=== PATIENT | female | born 1965 | race Hispanic/Latino ===

== ENCOUNTER → 2017-07-21 | Outpatient (CLI) | payer MEDICAID | END | disposition home or self-care (01) | LOC: RAH 09:28 | PROVIDERS: ATTEND Family Medicine | DX: Z12.31 Encounter for screening mammogram for malignant neoplasm of breast (principal) | CPT/HCPCS: 77067 ==

== ENCOUNTER 2017-10-16 20:55 | Emergency (ER) | payer MEDICAID, OTHER ==
[2017-10-16 23:13] LABS: BASOPHILS % (AUTO) 0.6 % (0.0-5.0); EOSINOPHILS % (AUTO) 2.1 % (0.0-8.0); HEMATOCRIT 37.3 % (36-48); LYMPHOCYTES % (AUTO) 30.7 % (21.0-51.0); MEAN CORPUSCULAR HEMOGLOBIN 30.4 pg (27.0-33.0); MEAN CORPUSCULAR HGB CONC 35.6 g/dL (32.0-36.0); MEAN CORPUSCULAR VOLUME 85.4 fL (79-99); MONOCYTES % (AUTO) 9.3 % (3.0-13.0); NEUTROPHILS % (AUTO) 57.3 % (40.0-77.0); NUCLEATED RED BLOOD CELLS 0.2 % (0.0-0.19); PLATELET COUNT (AUTO) 266 K/uL (130-400); RED BLOOD CELL COUNT(AUTO) 4.37 MIL/uL (4.00-5.50); RED CELL DISTRIBUTION WIDTH 13.2 % (11.0-15.5)
[2017-10-16 23:29] LABS: CREATININE 0.7 mg/dL (0.5-1.5)
[2017-10-16 23:34] LABS: POTASSIUM 2.8 mmol/L (3.5-5.1)
[2017-10-16] MEDS ORDERED: POTASSIUM BICARB/CIT AC 25 MEQ TABLET.EFF ONE (23:36)
== END 2017-10-17 00:20 | disposition home or self-care (01) ==
LOC: EDH 20:55
DX: T78.49XA Other allergy, initial encounter (principal); E87.6 Hypokalemia; I10 Essential (primary) hypertension; Z90.710 Acquired absence of both cervix and uterus; X58.XXXA Exposure to other specified factors, initial encounter
CPT/HCPCS: 36415; 80048; 82550; 85025

== ENCOUNTER → 2017-11-30 | Outpatient (CLI) | payer MEDICAID | END | disposition home or self-care (01) | LOC: RAH 11:08 | PROVIDERS: ATTEND Family Medicine | DX: M17.0 Bilateral primary osteoarthritis of knee (principal); M79.642 Pain in left hand | CPT/HCPCS: 73130; 73562 ==

== ENCOUNTER → 2018-08-08 | Outpatient (CLI) | payer MEDICAID ==
[~2018-08-08] MED LIST: IOHEXOL 350 MG/ML 100ML INFUS..BTL IV ONE
== END | disposition home or self-care (01) ==
LOC: OIH 09:55
PROVIDERS: ATTEND Family Medicine
DX: E27.9 Disorder of adrenal gland, unspecified (principal); K57.90 Diverticulosis of intestine, part unspecified, without perforation or abscess without bleeding; D35.00 Benign neoplasm of unspecified adrenal gland; N32.89 Other specified disorders of bladder; M47.815 Spondylosis without myelopathy or radiculopathy, thoracolumbar region; K76.0 Fatty (change of) liver, not elsewhere classified
CPT/HCPCS: 74178; Q9967

== ENCOUNTER 2018-09-06 18:14 | Emergency (ER) | payer MEDICAID ==
[2018-09-06] MEDS ORDERED: ACETAMINOPHEN EXTRA STRENGTH 500 MG TABLET ONE (18:53)
[2018-09-06] MEDS ORDERED: DIAZEPAM 5 MG TABLET ONE (18:54)
[2018-09-06 19:14] LABS: APPEARANCE,URINE Clear (CLEAR); BILIRUBIN,URINE Negative (NEGATIVE); COLOR,URINE Yellow (YELLOW); GLUCOSE, URINE (UA) Negative (NEGATIVE); KETONES,URINE Negative (NEGATIVE); LEUKOCYTE ESTERASE ,URINE Negative (NEGATIVE); NITRATE,URINE Negative (NEGATIVE); OCCULT BLOOD,URINE Negative (NEGATIVE); PROTEIN,URINE Negative (NEGATIVE); UROBILINOGEN,URINE 0.2 mg/dL (0.2-1.0)
[2018-09-06 19:22] LABS: CREATININE 0.8 mg/dL (0.5-1.5); POTASSIUM 3.2 mmol/L (3.5-5.1)
[2018-09-06 19:29] LABS: ALBUMIN 3.9 g/dL (3.5-5.0); BILIRUBIN,TOTAL 0.7 mg/dL (0.2-1.0); TOTAL PROTEIN, SERUM 7.5 g/dL (6.0-8.3)
[2018-09-06] MEDS ORDERED: POTASSIUM CHLORIDE 20 MEQ ERTAB PO ONE (19:57)
[2018-09-06 20:01] LABS: BASOPHILS % (AUTO) 0.5 % (0.0-5.0); EOSINOPHILS % (AUTO) 1.4 % (0.0-8.0); HEMATOCRIT 40.7 % (36-48); LYMPHOCYTES % (AUTO) 29.3 % (21.0-51.0); MEAN CORPUSCULAR HEMOGLOBIN 29.1 pg (27.0-33.0); MEAN CORPUSCULAR HGB CONC 34.1 g/dL (32.0-36.0); MEAN CORPUSCULAR VOLUME 85.5 fL (79-99); MONOCYTES % (AUTO) 7.6 % (3.0-13.0); NEUTROPHILS % (AUTO) 61.2 % (40.0-77.0); PLATELET COUNT (AUTO) 275 K/uL (130-400); RED BLOOD CELL COUNT(AUTO) 4.76 MIL/uL (4.00-5.50); RED CELL DISTRIBUTION WIDTH 12.9 % (11.0-15.5); WHITE BLOOD COUNT (AUTO) 8.9 K/uL (4.8-10.8)
[2018-09-06] MEDS ORDERED: DEXAMETHASONE SOD PHOSPHATE 10MG/ML 1ML VIAL ONE (20:25)
== END 2018-09-06 21:41 | disposition home or self-care (01) ==
LOC: EDH 18:14
DX: M62.838 Other muscle spasm (principal); M54.2 Cervicalgia; I10 Essential (primary) hypertension; Z88.8 Allergy status to other drugs, medicaments and biological substances
CPT/HCPCS: 36415; 80053; 81003; 85025; 96372; 99284; J1100

== ENCOUNTER 2019-05-15 17:21 | Observation (INO) | payer MEDICAID ==
[~2019-05-15] VITALS: Ht 157.5 cm; Wt 92.6 kg
[2019-05-15 17:38] LABS: APPEARANCE,URINE Clear (CLEAR); BILIRUBIN,URINE Negative (NEGATIVE); COLOR,URINE Yellow (YELLOW); GLUCOSE, URINE (UA) Negative (NEGATIVE); KETONES,URINE Negative (NEGATIVE); LEUKOCYTE ESTERASE ,URINE Negative (NEGATIVE); NITRATE,URINE Negative (NEGATIVE); OCCULT BLOOD,URINE Negative (NEGATIVE); PROTEIN,URINE Negative (NEGATIVE); UROBILINOGEN,URINE 0.2 mg/dL (0.2-1.0)
[2019-05-15 18:21] LABS: HEMATOCRIT 42.5 % (36-48); MEAN CORPUSCULAR HEMOGLOBIN 29.7 pg (27.0-33.0); MEAN CORPUSCULAR HGB CONC 34.4 g/dL (32.0-36.0); MEAN CORPUSCULAR VOLUME 86.4 fL (79-99); NEUTROPHILS % (AUTO) 59.6 % (40.0-77.0); PLATELET COUNT (AUTO) 227 K/uL (130-400); RED BLOOD CELL COUNT(AUTO) 4.92 MIL/uL (4.00-5.50); RED CELL DISTRIBUTION WIDTH 12.9 % (11.0-15.5)
[2019-05-15 18:22] LABS: BASOPHILS % (AUTO) 0.6 % (0.0-5.0); EOSINOPHILS % (AUTO) 1.3 % (0.0-8.0); LYMPHOCYTES % (AUTO) 31.1 % (21.0-51.0); MONOCYTES % (AUTO) 7.4 % (3.0-13.0); NUCLEATED RED BLOOD CELLS 0.1 % (0.0-0.19)
[2019-05-15 18:39] LABS: INR 0.98 (0.85-1.15); PARTIAL THROMBOPLASTIN TIME 28.7 SEC (26.3-35.5); PROTHROMBIN TIME 10.1 SEC (9.6-11.6)
[2019-05-15 18:41] LABS: ALBUMIN 3.7 g/dL (3.5-5.0); BILIRUBIN,TOTAL 0.7 mg/dL (0.2-1.0); CREATININE 0.6 mg/dL (0.5-1.5); TOTAL PROTEIN, SERUM 7.2 g/dL (6.0-8.3)
[2019-05-15 18:44] LABS: POTASSIUM 2.8 mmol/L (3.5-5.1)
[2019-05-15] MEDS ORDERED: ASPIRIN 325 MG TABLET ONE (19:23)
[2019-05-15] MEDS ORDERED: NITROGLYCERIN 1GM/1 INCH PACKET TD ONE (19:24)
[2019-05-15] MEDS ORDERED: POTASSIUM CHLORIDE 20 MEQ ERTAB PO ONE (19:24)
[2019-05-15 20:44] VITALS: BP 134/72
[2019-05-15] MEDS ORDERED: LIDOCAINE HCL-MPF 1% 2ML VIAL IJ PRN (20:45)
[2019-05-15] MEDS ORDERED: POTASSIUM CHLORIDE 10% ELIXIR 20 MEQ/15 ML UDCUP PO PRN ×2 (20:45→21:45)
[2019-05-15] MEDS ORDERED: ONDANSETRON HCL 4 MG/2 ML VIAL IVP PRN (20:45)
[2019-05-15] MEDS ORDERED: POTASSIUM CHLORIDE 20MEQ/100ML 100 ML IV PRN ×2 (20:45→21:45)
[2019-05-15] MEDS ORDERED: POTASSIUM CHLORIDE 20 MEQ ERTAB PO PRN (20:45)
[2019-05-15] MEDS ORDERED: NITROGLYCERIN 0.4 MG SL TAB SL PRN (20:45)
[2019-05-15] MEDS ORDERED: ACETAMINOPHEN 325 MG TAB PO PRN (20:45)
[2019-05-15] MEDS ORDERED: MAGNESIUM SULFATE 1 GM in SODIUM CHLORIDE 0.9% 50 ML IV PRN (21:00)
--- NOTE | 2019-05-15 21:00 | NUR ---
ADMISSION NOTE ADMIT TO ROOM 409 VIA W/C FROM ER. PATIENT AWAKE, ALERT OX3, NO SOB, NO C/O PAIN AT THIS TIME, FAMILY AT BEDSIDE, TEACH PATIENT AND FAMILY PLAN OF CARE AND EXPECTED OUTCOME, BOTH VERBALIZE UNDERSTANDING VIA TEACH BACK
[2019-05-15] MEDS ORDERED: MONT10TA24 PO (21:15)
[2019-05-15] MEDS ORDERED: LORA10TA7 PO (21:15)
[2019-05-15] MEDS ORDERED: ALPR0.25 PO (21:15)
[2019-05-15] MEDS ORDERED: CHLO25TA3 PO (21:15)
[2019-05-15] MEDS ORDERED: OMEP-298 PO (21:15)
[2019-05-15] MEDS ORDERED: MAGN400T40 PO (21:15)
[2019-05-15] MEDS ORDERED: DICY20TA11 PO (21:15)
[2019-05-15] MEDS ORDERED: CHOL200059 PO (21:15)
[2019-05-15] MEDS ORDERED: LOSA100T58 PO (21:15)
[2019-05-15] MEDS ORDERED: POTA20TA82 PO (21:15)
[2019-05-15] MEDS ORDERED: MAGNESIUM 2GM PREMIX 50ML 50 ML IV PRN (21:45)
[2019-05-15] MEDS ORDERED: LIDOCAINE HCL-MPF 1% 2ML VIAL IV PRN (21:45)
[2019-05-15 22:45] LABS: CARBON DIOXIDE 29 mmol/L (21-32); CHLORIDE 104 mmol/L (101-111); CREATINE KINASE, TOTAL 54 U/L (21-232); CREATININE 0.7 mg/dL (0.5-1.5); GLOMERULAR FILTR. RATE CALC 92 mL/min (>60); GLUCOSE,RANDOM 124 mg/dL (70-105); MYOGLOBIN 24 ng/mL (10-92); POTASSIUM 3.1 mmol/L (3.5-5.1); SODIUM SERUM 143 mmol/L (136-145); TROPONIN I < 0.04 ng/mL (0.00-0.06); UREA NITROGEN, BLOOD 10 mg/dL (7-18)
[2019-05-15 23:00] VITALS: BP 100/59
[2019-05-15] MEDS ORDERED: FLU VACC QS2019-20 36MOS UP/PF 60 MCG/0.5 ML ML IM ONE (23:15)
[2019-05-15] MEDS: POTASSIUM CHLORIDE 20 MEQ ERTAB PO PRN (23:44)
[2019-05-16 01:37] LABS: CREATINE KINASE, TOTAL 55 U/L (21-232); MYOGLOBIN 28 ng/mL (10-92); TROPONIN I < 0.04 ng/mL (0.00-0.06)
[2019-05-16] MEDS: POTASSIUM CHLORIDE 20 MEQ ERTAB PO PRN (02:13)
[2019-05-16 03:54] VITALS: BP 97/51
[2019-05-16] MEDS ORDERED: FLU VACC QS2019-20 36MOS UP/PF 60 MCG/0.5 ML ML IM ONE (06:44)
[2019-05-16 07:26] LABS: BASOPHILS % (AUTO) 0.4 % (0.0-5.0); EOSINOPHILS % (AUTO) 2.2 % (0.0-8.0); LYMPHOCYTES % (AUTO) 33.1 % (21.0-51.0); MEAN CORPUSCULAR HEMOGLOBIN 28.7 pg (27.0-33.0); MEAN CORPUSCULAR HGB CONC 33.9 g/dL (32.0-36.0); MEAN CORPUSCULAR VOLUME 84.9 fL (79-99); MONOCYTES % (AUTO) 9.3 % (3.0-13.0); NUCLEATED RED BLOOD CELLS 0.1 % (0.0-0.19); PLATELET COUNT (AUTO) 246 K/uL (130-400); WHITE BLOOD COUNT (AUTO) 6.9 K/uL (4.8-10.8)
[2019-05-16 07:30] VITALS: BP 104/52
[2019-05-16 07:31] LABS: CREATININE 0.6 mg/dL (0.5-1.5); POTASSIUM 3.6 mmol/L (3.5-5.1)
[2019-05-16] MEDS: PANTOPRAZOLE SODIUM 40 MG TABLET.DR PO SCH (08:07)
[2019-05-16] MEDS: ASPIRIN 81MG TAB.CHEW PO SCH (08:07)
--- NOTE | 2019-05-16 08:37 | NUR ---
DR NICHOLAS CONSULT CALL PLACED TO [facility]- LEFT MESSAGE WITH ELDA/RADIOLOGY SCHEDULER. PENDING CB
--- NOTE | 2019-05-16 10:30 | NUR ---
DR NICHOLAS CONSULT CALLED CONSULT LINE, SPOKE TO ELDA WHO STATED DR NICHOLAS IS AWARE OF CONSULT. PENIDNG HIM TO COME BY
[2019-05-16 11:00] VITALS: BP 117/77
[2019-05-16] MEDS ORDERED: ASPI-1005 PO (12:38)
[2019-05-16] MEDS ORDERED: Nitroglycerin 0.4MG Sl Tab SL (12:38)
--- NOTE | 2019-05-16 15:08 | NUR ---
DCP CM met with pt discussed dc plans. Pt is independent prior to admission, lives at home w/spouse. Denies any equipments/services. Feels safe to go back home, still drives, spouse able to assist with transportation and needs as necessary. DC plan to home once stable. CM to cont to follow up. Addendum: 05/16/19 at 1509 by BHARAT CODY LVN CM Amended: Links added.
[2019-05-16 16:00] VITALS: BP 117/68
[2019-05-16 19:08] VITALS: BP 122/72
[2019-05-16] MEDS ORDERED: WHEA98PO PO (19:35)
[2019-05-16] MEDS: FAMOTIDINE 20MG TAB 20 MG TAB PO SCH (19:59)
[2019-05-16] MEDS ORDERED: DICYCLOMINE HCL 20 MG TAB PO PRN (20:45)
[2019-05-16] MEDS ORDERED: ALPRAZOLAM 0.25 MG TABLET PO PRN (20:45)
[2019-05-16] MEDS: MAGNESIUM OXIDE 400 MG TABLET PO SCH (22:31)
[2019-05-16] MEDS: POTASSIUM CHLORIDE 20 MEQ ERTAB PO SCH (22:32)
[2019-05-16 23:00] VITALS: BP 132/80
--- NOTE | 2019-05-16 23:40 | NUR ---
cardiology consult dr. trujillo to see and examen patient with orders, plan for lexiscan stress test in the am , inform patient of npo status
[2019-05-17] VITALS: BP 132/80
[2019-05-17 03:54] VITALS: BP 121/75
[2019-05-17] MEDS ORDERED: DEXTROSE 50%-WATER 50 ML DISP.SYRIN IV PRN (05:30)
[2019-05-17] MEDS ORDERED: GLUCAGON 1MG KIT 1 MG ML IM PRN (05:30)
[2019-05-17] MEDS: INSULIN HUMULIN R 100 UNIT/ML 3ML SQ SCH ×3 (06:02→16:30)
[2019-05-17 06:38] LABS: CREATININE 0.7 mg/dL (0.5-1.5); MAGNESIUM 1.8 mg/dL (1.80-2.40); PHOSPHORUS 4.2 mg/dL (2.5-4.9); POTASSIUM 3.6 mmol/L (3.5-5.1); THYROID STIMULATING HORMONE 3.16 uIU/mL (0.36-3.74)
[2019-05-17 06:54] LABS: HEMOGLOBIN A1C 5.7 % (4.0-6.0)
[2019-05-17 07:37] LABS: BASOPHILS % (AUTO) 0.6 % (0.0-5.0); EOSINOPHILS % (AUTO) 2.2 % (0.0-8.0); HEMATOCRIT 38.4 % (36-48); LYMPHOCYTES % (AUTO) 31.3 % (21.0-51.0); MEAN CORPUSCULAR HEMOGLOBIN 29.5 pg (27.0-33.0); MEAN CORPUSCULAR VOLUME 84.1 fL (79-99); MONOCYTES % (AUTO) 9.7 % (3.0-13.0); NEUTROPHILS % (AUTO) 56.2 % (40.0-77.0); NUCLEATED RED BLOOD CELLS 0.1 % (0.0-0.19); PLATELET COUNT (AUTO) 402 K/uL (130-400); RED BLOOD CELL COUNT(AUTO) 4.57 MIL/uL (4.00-5.50); RED CELL DISTRIBUTION WIDTH 12.8 % (11.0-15.5); WHITE BLOOD COUNT (AUTO) 7.1 K/uL (4.8-10.8)
[2019-05-17 08:04] VITALS: BP 110/63
[2019-05-17] MEDS: ASPIRIN 81MG TAB.CHEW PO SCH (08:51)
[2019-05-17] MEDS: PANTOPRAZOLE SODIUM 40 MG TABLET.DR PO SCH (08:52)
[2019-05-17] MEDS: POTASSIUM CHLORIDE 20 MEQ ERTAB PO SCH ×2 (08:52→17:13)
[2019-05-17] MEDS: MAGNESIUM OXIDE 400 MG TABLET PO SCH ×2 (08:52→17:13)
[2019-05-17] MEDS: FAMOTIDINE 20MG TAB 20 MG TAB PO SCH ×2 (08:52→17:12)
[2019-05-17] MEDS ORDERED: LORATADINE 10 MG TABLET PO SCH (09:00)
[2019-05-17] MEDS ORDERED: NON-FORMULARY MEDICATION 1 EACH (Omeprazole 20 MG) PO SCH (09:00)
[2019-05-17] MEDS ORDERED: MONTELUKAST SODIUM 10 MG TAB PO SCH (09:00)
[2019-05-17] MEDS ORDERED: ENOXAPARIN SODIUM 40 MG/0.4 ML SYRINGE SQ SCH (09:00)
[2019-05-17] MEDS ORDERED: LOSARTAN 100 MG TABLET PO SCH (09:00)
[2019-05-17] MEDS ORDERED: Chlorthalidone 25 MG PO SCH (09:00)
[2019-05-17 11:34] VITALS: BP 106/56
[2019-05-17] MEDS ORDERED: REGADENOSON 0.4 MG/5 ML PF SYG IVP SCH (12:15)
--- NOTE | 2019-05-17 13:05 | NUR ---
STRESS TEST PATIENT TRANSPORTED TO RADIOLOGY VIA WHEELCHAIR FOR SKIP-SCAN IN STABLE CONDITION. FAMILY IS PRESENT AT BEDSIDE.
[2019-05-17 16:00] VITALS: BP 142/79
--- NOTE | 2019-05-17 16:00 | NUR ---
BACK IN ROOM PATIENT RETURNED FROM STRESS TEST. PENDING RESULTS. NO DISTRESS NOTED. WILL CONTINUE TO MONITOR.
--- NOTE | 2019-05-17 17:20 | NUR ---
CARDIOLOGY DR. NICHOLAS CALLED TO LET ME KNOW THAT HE WAS AT ANOTHER FACILITY AND WOULD BE THERE FOR ABOUT ANOTHER HOUR THEN HE WOULD HEAD THIS WAY. HE STATED THAT IF THE STRESS TEST AND THE 2-D ECHO WERE NOT READ BY THEN, HE WOULD READ THEM AT THAT TIME.
[2019-05-17 19:24] VITALS: BP 106/58
--- NOTE | 2019-05-17 20:59 | NUR ---
AGRICULTURIST DR. NICHOLAS TO SEE PATIENT , WITH ORDERS TO DISHARGE TONITE, HOME MED ASPIRIN 81 MG PO DAILY AND PROTONIX 40 MG PO DAILY NEW HOME MEDICATIONS, PER DR. NICHOLAS NO NEED FOR NITROGYLYCERIN 0.4MG SL, NOT NEEDED, STRESS TEST AND ECHOCARDIOGRAM NEGATIVE PER DR. NICHOLAS
--- NOTE | 2019-05-17 21:10 | NUR ---
DISCHARGE SALINE LOCK REMOVED LEFT FOREARM, NO REDNESS OR SWELLING NOTED, APPLY 2X2 DRESSING, DISCHARGE INSTRUCTIONS GIVEN PATIENT AND PATIENTS , VERBALIZE UNDERSTANDING VIA TEACH BACK, DISCHARGE HOME VIA W/C
[2019-05-23] MEDS ORDERED: ERGOCALCIFEROL (VITAMIN D2) 50,000 UNIT CAPSULE PO SCH (09:00)
== END 2019-05-17 21:10 | disposition home or self-care (01) ==
LOC: EDH 17:21 → EDHIP 17:22 → 4BH 20:44
PROVIDERS: ADMIT Internal Medicine Critical Care Medicine; ATTEND Internal Medicine Critical Care Medicine
DX: R07.89 Other chest pain (principal); E78.5 Hyperlipidemia, unspecified; E11.9 Type 2 diabetes mellitus without complications; K21.9 Gastro-esophageal reflux disease without esophagitis; E66.01 Morbid (severe) obesity due to excess calories; F41.9 Anxiety disorder, unspecified; F32.9 Major depressive disorder, single episode, unspecified; I10 Essential (primary) hypertension; I25.10 Atherosclerotic heart disease of native coronary artery without angina pectoris; J45.909 Unspecified asthma, uncomplicated; K76.0 Fatty (change of) liver, not elsewhere classified; Z23 Encounter for immunization; Z79.899 Other long term (current) drug therapy; Z88.5 Allergy status to narcotic agent; Z88.8 Allergy status to other drugs, medicaments and biological substances; Z68.37 Body mass index [BMI] 37.0-37.9, adult
CPT/HCPCS: 36415 ×3; 71045; 78452; 80048 ×3; 80053; 80061; 81003; 82550 ×3; 82948 ×2; 83036; 83690; 83735 ×3; 83874 ×2; 83880; 84100 ×2; 84439; 84443; 84484 ×4; 85025 ×3; 85610; 85730; 90471; 93005; 93017; 93306; 96365; 96366; 99284; A9500 ×2; G0378 ×46; J2785; J3475; Q2035; 96374

== ENCOUNTER → 2019-07-15 | Outpatient (CLI) | payer OTHER ==
[~2019-07-15] MED LIST changes: +ALPR0.25 PO; +ASPI-1005 PO; +CHLO25TA3 PO; +CHOL200059 PO; +DICY20TA11 PO; -IOHEXOL 350 MG/ML 100ML INFUS..BTL IV ONE; +LORA10TA7 PO; +LOSA100T58 PO; +MAGN400T40 PO; +MONT10TA24 PO; +Nitroglycerin 0.4MG Sl Tab SL; +OMEP20CA12 PO; +POTA20TA82 PO; +WHEA98PO PO
== END | disposition home or self-care (01) ==
LOC: RAH 11:04
PROVIDERS: ATTEND Family Medicine
DX: Z13.6 Encounter for screening for cardiovascular disorders (principal)
CPT/HCPCS: 75571

== ENCOUNTER → 2019-08-29 | Outpatient (CLI) | payer MEDICAID ==
[~2019-08-29] MED LIST changes: -MONT10TA24 PO; +MONT10TA26 PO
== END | disposition home or self-care (01) ==
LOC: RAH 07:59
PROVIDERS: ATTEND Family Medicine
DX: D35.00 Benign neoplasm of unspecified adrenal gland (principal); K76.0 Fatty (change of) liver, not elsewhere classified; N28.1 Cyst of kidney, acquired; Z90.49 Acquired absence of other specified parts of digestive tract
CPT/HCPCS: 76700

== ENCOUNTER 2019-11-30 11:20 | Emergency (ER) | payer MEDICAID ==
[2019-11-30 13:01] LABS: BASOPHILS % (AUTO) 0.4 % (0.0-5.0); EOSINOPHILS % (AUTO) 1.9 % (0.0-8.0); HEMATOCRIT 40.5 % (36-48); LYMPHOCYTES % (AUTO) 37.8 % (21.0-51.0); MEAN CORPUSCULAR HEMOGLOBIN 28.7 pg (27.0-33.0); MEAN CORPUSCULAR HGB CONC 33.3 g/dL (32.0-36.0); MEAN CORPUSCULAR VOLUME 86.2 fL (79-99); MONOCYTES % (AUTO) 9.9 % (3.0-13.0); NEUTROPHILS % (AUTO) 49.7 % (40.0-77.0); PLATELET COUNT (AUTO) 276 K/uL (130-400); RED CELL DISTRIBUTION WIDTH 11.9 % (11.0-15.5); WHITE BLOOD COUNT (AUTO) 7.2 K/uL (4.8-10.8)
[2019-11-30 13:18] LABS: CREATININE 0.6 mg/dL (0.5-1.5); POTASSIUM 3.1 mmol/L (3.5-5.1)
[2019-11-30 13:23] LABS: ALBUMIN 3.6 g/dL (3.5-5.0); BILIRUBIN,TOTAL 0.5 mg/dL (0.2-1.0)
[2019-11-30 13:34] LABS: APPEARANCE,URINE Clear (CLEAR); BILIRUBIN,URINE Small (NEGATIVE); COLOR,URINE Dark Yellow (YELLOW); GLUCOSE, URINE (UA) Negative (NEGATIVE); KETONES,URINE Trace mg/dL (NEGATIVE); LEUKOCYTE ESTERASE ,URINE Negative (NEGATIVE); NITRATE,URINE Negative (NEGATIVE); OCCULT BLOOD,URINE Negative (NEGATIVE); PROTEIN,URINE Trace mg/dL (NEGATIVE)
[2019-11-30 13:59] LABS: BACTERIA,URINE Rare /HPF (None Seen); MUCUS,URINE Few LPF (None Seen); RBC,URINE 0-1 /HPF (0-1); SQUAMOUS EPITHELIAL CELL,UR Rare /HPF (0-2); WBC,URINE 0-1 /HPF (0-1)
[2019-11-30] MEDS ORDERED: POTASSIUM BICARB/CIT AC 25 MEQ TABLET.EFF ONE (14:15)
[2019-11-30] MEDS ORDERED: LIDOCAINE HCL 1% 20 ML VIAL ONE (14:28)
== END 2019-11-30 14:41 | disposition home or self-care (01) ==
LOC: EDH 11:20
DX: L02.219 Cutaneous abscess of trunk, unspecified (principal); E87.6 Hypokalemia; R30.0 Dysuria; I10 Essential (primary) hypertension; Z90.710 Acquired absence of both cervix and uterus; Z98.51 Tubal ligation status; Z88.8 Allergy status to other drugs, medicaments and biological substances; Z87.891 Personal history of nicotine dependence
CPT/HCPCS: 10060; 36415; 80053; 81001; 85025